=== PATIENT | female | born 1970 | race Caucasian/White ===

== ENCOUNTER → 2020-07-14 | Day surgery (SDC) | payer MEDICARE ==
[2020-07-09 12:48] LABS: BASOPHILS # (AUTO) 0.1 (0.0-0.1); BASOPHILS % 0.4 % (0.0-1.0); EOSINOPHILS # (AUTO) 0.3 (0.0-0.4); EOSINOPHILS % 2.6 % (0.0-6.0); HEMOGLOBIN 12.8 g/dL (12.0-16.0); LYMPHOCYTES # (AUTO) 2.3 (1.0-3.2); LYMPHOCYTES % 20.6 % (18.0-39.1); MEAN CORPUSCULAR HEMOGLOBIN 26.1 pg (28-32); MEAN CORPUSCULAR HGB CONC 29.8 g/dL (31-35); MEAN CORPUSCULAR VOLUME 87.8 fL (81-99); MONOCYTES # (AUTO) 0.8 (0.2-0.8); MONOCYTES % 6.6 % (4.4-11.3); NEUTROPHILS # (AUTO) 7.9 (2.1-6.9); NEUTROPHILS % 69.4 % (38.7-80.0); PLATELET COUNT 326 x10e3/uL (140-360); RED CELL DISTRIBUTION WIDTH 13.7 % (11.7-14.4)
[~2020-07-14] MED LIST: ALBUTEROL0.63 MG/3 NEB; BALANCED SALT SOLN (OPTH) 15 ML BTL IO ONE; CRESTOR10 MG PO; DIGOXIN250 MCG PO; ELIQUIS5 MG PO; FENTANYL CITRATE/PF 100MCG/2 ML INJ ONE; FLONASE ALLERG9.9 ML INH; FUROSEMIDE40 MG PO; GABAPENTIN300 MG PO; HUMALOG MI100 UNIT/2 SQ; LANTUS 3ML100 UNITS/ SC; LEVOXYL125 MCG PO; LIDOCAINE HCL50 ML TOP; METHOCARBAMOL750 MG PO; METOPROLOL TAR100 MG PO; MIDAZOLAM HCL 2 MG/2 ML VIAL ONE; OR PHACO EYE KIT ONE; PREOP PHACO EYE KIT ONE; SERTRALINE HCL100 MG PO; VIT B12 PO; [UNRECOGNIZED DRUG - OTHER] INH
[2020-07-14 11:55] VITALS: BP 118/54
== END | disposition home or self-care (01) ==
LOC: OR 08:13
PROVIDERS: ATTEND Ophthalmology
DX: H25.12 Age-related nuclear cataract, left eye (principal); M54.9 Dorsalgia, unspecified; J45.909 Unspecified asthma, uncomplicated; G47.33 Obstructive sleep apnea (adult) (pediatric); I10 Essential (primary) hypertension; E78.5 Hyperlipidemia, unspecified; I48.91 Unspecified atrial fibrillation; E11.9 Type 2 diabetes mellitus without complications; N20.0 Calculus of kidney; Z88.2 Allergy status to sulfonamides; Z88.8 Allergy status to other drugs, medicaments and biological substances; Z01.812 Encounter for preprocedural laboratory examination; Z20.822 Contact with and (suspected) exposure to COVID-19; Z79.4 Long term (current) use of insulin; Z79.02 Long term (current) use of antithrombotics/antiplatelets
CPT/HCPCS: 36415 ×2; 66982; 82948; 84702; 85025; J2250; J3010; U0002; V2632

== ENCOUNTER 2021-05-03 05:27 | Inpatient (IN) | payer MEDICARE ==
[~2021-05-03] VITALS: Ht 180.3 cm; Wt 147.4 kg
[~2021-05-03 05:27] MED LIST changes: -BALANCED SALT SOLN (OPTH) 15 ML BTL IO ONE; -FENTANYL CITRATE/PF 100MCG/2 ML INJ ONE; -MIDAZOLAM HCL 2 MG/2 ML VIAL ONE; -OR PHACO EYE KIT ONE; -PREOP PHACO EYE KIT ONE
[2021-05-03] MEDS ORDERED: ONDANSETRON HCL INJ 2MG/ML 2ML 2 MG/ML VIAL IV STA (06:26)
[2021-05-03] MEDS ORDERED: NITROGLYCERIN 2% OINT 1 GM PKT TOP ONE (06:30)
[2021-05-03] MEDS ORDERED: NITROGLYCERIN 2% OINT 1 GM PKT ONE (06:40)
[2021-05-03 06:49] LABS: CLARITY,URINE CLEAR (CLEAR); COLOR,URINE YELLOW (YELLOW); KETONES,URINE NEGATIVE (NEGATIVE); LEUKOCYTE ESTERASE ,URINE NEGATIVE (NEGATIVE); NITRITE,URINE NEGATIVE (NEGATIVE); PROTEIN,URINE DIPSTICK TRACE (NEGATIVE); URINE UROBILINOGEN 1 mg/dL (0.2 - 1)
[2021-05-03 06:52] LABS: BACTERIA,URINE FEW /HPF; EPITHELIAL CELLS,URINE MANY /LPF
[2021-05-03 06:59] LABS: BASOPHILS # (AUTO) 0.1 (0.0-0.1); BASOPHILS % 0.6 % (0.0-1.0); EOSINOPHILS # (AUTO) 0.3 (0.0-0.4); EOSINOPHILS % 2.4 % (0.0-6.0); HEMATOCRIT 37.3 % (34.2-44.1); HEMOGLOBIN 10.8 g/dL (12.0-16.0); LYMPHOCYTES # (AUTO) 2.8 (1.0-3.2); LYMPHOCYTES % 20.8 % (18.0-39.1); MEAN CORPUSCULAR HEMOGLOBIN 26.4 pg (28-32); MEAN CORPUSCULAR VOLUME 91.2 fL (81-99); MONOCYTES # (AUTO) 0.8 (0.2-0.8); MONOCYTES % 5.9 % (4.4-11.3); NEUTROPHILS # (AUTO) 9.3 (2.1-6.9); NEUTROPHILS % 69.5 % (38.7-80.0); PLATELET COUNT 359 x10e3/uL (140-360); RED BLOOD COUNT 4.09 x10e6/uL (3.6-5.1); RED CELL DISTRIBUTION WIDTH 13.8 % (11.7-14.4)
[2021-05-03 07:16] LABS: ALANINE AMINOTRANSFERASE 54 IU/L (0-55); ALBUMIN 3.4 g/dL (3.5-5.0); ALBUMIN/GLOBULIN RATIO 0.8 (0.8-2.0); ALKALINE PHOSPHATASE 91 IU/L (40-150); ANION GAP 10.7 mmol/L (8-16); CALCIUM 9.3 mg/dL (8.4-10.2); CARBON DIOXIDE 34 mmol/L (22-29); CHLORIDE 98 mmol/L (98-107); CREATINE KINASE 47 IU/L (29-168); CREATININE, SERUM 0.87 mg/dL (0.57-1.11); EST GLOMERULAR FILTRATION RATE 69 ML/MIN (60-); GLUCOSE 118 mg/dL (74-118); MAGNESIUM 1.9 MG/DL (1.3-2.1); POTASSIUM 3.7 mmol/L (3.5-5.1); SODIUM 139 mmol/L (136-145)
[2021-05-03 07:48] LABS: BLOOD UREA NITROGEN 11 mg/dL (7-26); BUN/CREATININE RATIO 13 (6-25)
[2021-05-03] MEDS: FAMOTIDINE 20 MG/2 ML VIAL IV SCH ×2 (09:00→20:29)
[2021-05-03] MEDS ORDERED: FLUTICASONE PROPIONATE NASAL SPRAY NS PRN (09:45)
[2021-05-03] MEDS ORDERED: METOPROLOL SUCCINATE 50 MG TAB XL PO ONE (09:45)
[2021-05-03] MEDS ORDERED: LIDOCAINE HCL 4% 50 ML BTL TOP SCH (09:45)
[2021-05-03] MEDS ORDERED: DEXTROSE 50% SYRINGE 50 ML IV PRN (09:45)
[2021-05-03 10:00] VITALS: BP 120/60
[2021-05-03] MEDS ORDERED: LIDOCAINE 4% PATCH TP PRN (10:45)
[2021-05-03 11:01] VITALS: BP 120/60
[2021-05-03] MEDS ORDERED: MIRALAX17 GM PO (11:01)
[2021-05-03 11:07] VITALS: BP 120/60
[2021-05-03] MEDS: INSULIN LISPRO 100 UNIT/1 ML 3ML VIAL SQ SCH ×6 (11:30→21:00)
[2021-05-03] MEDS: NITROGLYCERIN 2% OINT 1 GM PKT TOP SCH ×3 (12:54→23:53)
[2021-05-03] MEDS: METOPROLOL TARTRATE 50 MG TAB PO SCH ×2 (12:55→22:00)
[2021-05-03] MEDS: GABAPENTIN 300 MG CAP PO SCH ×2 (15:30→20:29)
[2021-05-03] MEDS: Morphine 2mg Syringe 2 MG/ML SYR IV PRN ×3 (15:39→23:42)
[2021-05-03 16:13] VITALS: BP 118/63
[2021-05-03 16:57] LABS: PROTHROMBIN TIME 12.7 seconds (11.9-14.5)
[2021-05-03] MEDS: APIXABAN 5 MG TABLET PO SCH (16:57)
[2021-05-03] MEDS: INSULIN GLARGINE 100 UNITS/ML VIAL SQ SCH (16:58)
[2021-05-03] MEDS ORDERED: INSULIN GLARGINE U SC SCH (17:00)
[2021-05-03 17:25] LABS: INR 1.15
[2021-05-03 17:28] LABS: PARTIAL THROMBOPLASTIN TIME 32.5 seconds (23.8-35.5)
[2021-05-03 18:21] LABS: CREATINE KINASE MB 1.1 ng/mL (0-5.0)
[2021-05-03 20:00] VITALS: BP 118/63
[2021-05-03] MEDS: SIMVASTATIN 20 MG TAB PO SCH (20:29)
[2021-05-03] MEDS: ONDANSETRON HCL INJ 2MG/ML 2ML 2 MG/ML VIAL IV PRN (20:30)
[2021-05-03] MEDS: SERTRALINE HCL 100 MG TAB PO SCH (20:30)
[2021-05-03 20:54] VITALS: BP 112/54
[2021-05-04] VITALS (7 sets, daily range): BP systolic 102–133; BP diastolic 47–86
[2021-05-04 00:55] LABS: CREATINE KINASE 45 IU/L (29-168)
[2021-05-04 05:05] LABS: BASOPHILS # (AUTO) 0.1 (0.0-0.1); BASOPHILS % 0.6 % (0.0-1.0); EOSINOPHILS # (AUTO) 0.3 (0.0-0.4); EOSINOPHILS % 2.5 % (0.0-6.0); HEMATOCRIT 34.1 % (34.2-44.1); LYMPHOCYTES # (AUTO) 2.7 (1.0-3.2); LYMPHOCYTES % 22.1 % (18.0-39.1); MEAN CORPUSCULAR HGB CONC 29.3 g/dL (31-35); MEAN CORPUSCULAR VOLUME 88.6 fL (81-99); MONOCYTES # (AUTO) 0.9 (0.2-0.8); MONOCYTES % 7.8 % (4.4-11.3); NEUTROPHILS # (AUTO) 8.1 (2.1-6.9); NEUTROPHILS % 66.4 % (38.7-80.0); PLATELET COUNT 328 x10e3/uL (140-360); RED BLOOD COUNT 3.85 x10e6/uL (3.6-5.1); RED CELL DISTRIBUTION WIDTH 13.8 % (11.7-14.4)
[2021-05-04] MEDS: ONDANSETRON HCL INJ 2MG/ML 2ML 2 MG/ML VIAL IV PRN ×3 (05:19→12:20)
[2021-05-04] MEDS: Morphine 2mg Syringe 2 MG/ML SYR IV PRN ×5 (05:19→21:10)
[2021-05-04] MEDS: LEVOTHYROXINE SODIUM 125 MCG TAB PO SCH (05:20)
[2021-05-04] MEDS: METOPROLOL TARTRATE 50 MG TAB PO SCH ×2 (05:22→16:50)
[2021-05-04] MEDS: NITROGLYCERIN 2% OINT 1 GM PKT TOP SCH ×3 (05:25→17:06)
[2021-05-04 05:38] LABS: ALBUMIN 3.1 g/dL (3.5-5.0); ALBUMIN/GLOBULIN RATIO 0.8 (0.8-2.0); CALCIUM 8.8 mg/dL (8.4-10.2); CHOL/HDL RATIO 3.9 (3.0-3.6); CREATININE, SERUM 0.85 mg/dL (0.57-1.11)
[2021-05-04] MEDS: FAMOTIDINE 20 MG/2 ML VIAL IV SCH (08:31)
[2021-05-04] MEDS: GABAPENTIN 300 MG CAP PO SCH ×3 (08:31→21:10)
[2021-05-04] MEDS: APIXABAN 5 MG TABLET PO SCH ×2 (08:31→17:01)
[2021-05-04] MEDS: INSULIN LISPRO 100 UNIT/1 ML 3ML VIAL SQ SCH ×8 (08:35→21:10)
[2021-05-04] MEDS: INSULIN GLARGINE 100 UNITS/ML VIAL SQ SCH ×2 (08:35→17:05)
[2021-05-04] MEDS ORDERED: PEG (High)/E-LYTE SOLN 4,000 ML BTL PO ONE (10:30)
[2021-05-04] MEDS ORDERED: FUROSEMIDE INJ 10 MG/ML 4 ML VIAL IV ONE (10:30)
[2021-05-04] MEDS: ALBUTEROL SULF 0.083% NEB SOLN 3 ML NEB NEB PRN ×2 (12:13→19:10)
[2021-05-04] MEDS ORDERED: POLYETHYLENE GLYCOL 3350 17 GM PACK PO PRN (15:15)
[2021-05-04] MEDS ORDERED: OXAZEPAM 10 MG CAP PO PRN (15:15)
[2021-05-04] MEDS ORDERED: MAGNESIUM HYDROXIDE 30 ML UDC PO PRN (15:15)
[2021-05-04 16:21] LABS: % IRON SATURATION 7 % (15-50); IRON 29 ug/dL (50-170); TOTAL IRON BINDING CAPACITY 435 ug/dL (261-478); TRANSFERRIN 311 mg/dL (180-382)
[2021-05-04] MEDS: DOCUSATE SODIUM 100 MG CAP PO SCH (17:01)
[2021-05-04] MEDS: IRON SUCROSE 100 MG in SODIUM CHLORIDE 0.9% 100 ML 100 ML IV SCH (20:30)
[2021-05-04] MEDS: SERTRALINE HCL 100 MG TAB PO SCH (21:10)
[2021-05-04] MEDS: SIMVASTATIN 20 MG TAB PO SCH (21:10)
[2021-05-04] MEDS: METHOCARBAMOL 750 MG TAB PO SCH (21:10)
[2021-05-05] VITALS (9 sets, daily range): BP systolic 110–137; BP diastolic 56–61
[2021-05-05] MEDS: ONDANSETRON HCL INJ 2MG/ML 2ML 2 MG/ML VIAL IV PRN ×6 (00:37→21:40)
[2021-05-05] MEDS: Morphine 2mg Syringe 2 MG/ML SYR IV PRN ×6 (00:37→21:40)
[2021-05-05] MEDS: NITROGLYCERIN 2% OINT 1 GM PKT TOP SCH ×4 (00:37→18:27)
[2021-05-05 05:31] LABS: BASOPHILS # (AUTO) 0.1 (0.0-0.1); BASOPHILS % 0.5 % (0.0-1.0); EOSINOPHILS # (AUTO) 0.4 (0.0-0.4); EOSINOPHILS % 2.9 % (0.0-6.0); HEMATOCRIT 35.3 % (34.2-44.1); HEMOGLOBIN 10.3 g/dL (12.0-16.0); LYMPHOCYTES # (AUTO) 2.2 (1.0-3.2); LYMPHOCYTES % 17.4 % (18.0-39.1); MEAN CORPUSCULAR HEMOGLOBIN 25.8 pg (28-32); MEAN CORPUSCULAR HGB CONC 29.2 g/dL (31-35); MEAN CORPUSCULAR VOLUME 88.5 fL (81-99); MONOCYTES % 7.6 % (4.4-11.3); NEUTROPHILS # (AUTO) 9.1 (2.1-6.9); NEUTROPHILS % 70.9 % (38.7-80.0); PLATELET COUNT 338 x10e3/uL (140-360); RED BLOOD COUNT 3.99 x10e6/uL (3.6-5.1); RED CELL DISTRIBUTION WIDTH 13.8 % (11.7-14.4)
[2021-05-05 05:45] LABS: ANION GAP 13.7 mmol/L (8-16); CALCIUM 9.4 mg/dL (8.4-10.2); CREATININE, SERUM 0.83 mg/dL (0.57-1.11); POTASSIUM 3.7 mmol/L (3.5-5.1)
[2021-05-05] MEDS: LEVOTHYROXINE SODIUM 125 MCG TAB PO SCH (06:53)
[2021-05-05] MEDS: INSULIN LISPRO 100 UNIT/1 ML 3ML VIAL SQ SCH ×8 (07:30→21:40)
[2021-05-05] MEDS: DOCUSATE SODIUM 100 MG CAP PO SCH ×2 (09:10→16:53)
[2021-05-05] MEDS: PANTOPRAZOLE SOD 40 MG TABEC PO SCH (09:10)
[2021-05-05] MEDS: FUROSEMIDE 40 MG TAB PO SCH (09:10)
[2021-05-05] MEDS: APIXABAN 5 MG TABLET PO SCH ×2 (09:10→16:53)
[2021-05-05] MEDS: INSULIN GLARGINE 100 UNITS/ML VIAL SQ SCH ×2 (09:11→17:00)
[2021-05-05] MEDS: GABAPENTIN 300 MG CAP PO SCH ×3 (09:11→21:40)
[2021-05-05] MEDS: METOPROLOL TARTRATE 50 MG TAB PO SCH ×2 (09:11→16:54)
[2021-05-05] MEDS: METHOCARBAMOL 750 MG TAB PO SCH ×3 (09:11→21:40)
[2021-05-05] MEDS ORDERED: SODIUM CHLORIDE 0.9% 250ML 250 ML ONE (11:41)
[2021-05-05] MEDS: DIGOXIN 0.125 MG TAB PO SCH (11:53)
[2021-05-05] MEDS: CEFTRIAXONE 1 GM in SODIUM CHLORIDE 0.9% 50ML 50 ML IV SCH ×2 (11:53→21:40)
[2021-05-05] MEDS: PROMETHAZINE HCL 25 MG TAB PO PRN (17:11)
[2021-05-05] MEDS: IRON SUCROSE 100 MG in SODIUM CHLORIDE 0.9% 100 ML 100 ML IV SCH ×2 (20:00→21:56)
[2021-05-05] MEDS: ALBUTEROL SULF 0.083% NEB SOLN 3 ML NEB NEB PRN (20:30)
[2021-05-05] MEDS: SIMVASTATIN 20 MG TAB PO SCH (21:40)
[2021-05-05] MEDS: SERTRALINE HCL 100 MG TAB PO SCH (21:40)
[2021-05-06] VITALS (7 sets, daily range): BP systolic 105–125; BP diastolic 53–69
[2021-05-06] MEDS: NITROGLYCERIN 2% OINT 1 GM PKT TOP SCH ×4 (00:06→18:02)
[2021-05-06] MEDS: Morphine 2mg Syringe 2 MG/ML SYR IV PRN ×7 (00:15→22:27)
[2021-05-06 05:58] LABS: BASOPHILS # (AUTO) 0.1 (0.0-0.1); BASOPHILS % 0.6 % (0.0-1.0); EOSINOPHILS # (AUTO) 0.6 (0.0-0.4); EOSINOPHILS % 4.2 % (0.0-6.0); HEMATOCRIT 34.7 % (34.2-44.1); HEMOGLOBIN 10.7 g/dL (12.0-16.0); LYMPHOCYTES # (AUTO) 2.9 (1.0-3.2); LYMPHOCYTES % 21.2 % (18.0-39.1); MEAN CORPUSCULAR HEMOGLOBIN 26.8 pg (28-32); MEAN CORPUSCULAR HGB CONC 30.8 g/dL (31-35); MEAN CORPUSCULAR VOLUME 86.8 fL (81-99); MONOCYTES # (AUTO) 1.1 (0.2-0.8); MONOCYTES % 7.9 % (4.4-11.3); NEUTROPHILS # (AUTO) 8.9 (2.1-6.9); NEUTROPHILS % 65.1 % (38.7-80.0); PLATELET COUNT 328 x10e3/uL (140-360)
[2021-05-06 06:18] LABS: ANION GAP 12.6 mmol/L (8-16); CALCIUM 8.9 mg/dL (8.4-10.2); CREATININE, SERUM 0.83 mg/dL (0.57-1.11); POTASSIUM 3.6 mmol/L (3.5-5.1)
[2021-05-06] MEDS: LEVOTHYROXINE SODIUM 125 MCG TAB PO SCH (06:43)
[2021-05-06] MEDS: ONDANSETRON HCL INJ 2MG/ML 2ML 2 MG/ML VIAL IV PRN ×2 (06:44→12:57)
[2021-05-06] MEDS: INSULIN LISPRO 100 UNIT/1 ML 3ML VIAL SQ SCH ×8 (07:30→22:17)
[2021-05-06] MEDS: GABAPENTIN 300 MG CAP PO SCH ×3 (08:35→22:26)
[2021-05-06] MEDS: DOCUSATE SODIUM 100 MG CAP PO SCH ×2 (08:35→16:11)
[2021-05-06] MEDS: PANTOPRAZOLE SOD 40 MG TABEC PO SCH (08:36)
[2021-05-06] MEDS: DIGOXIN 0.125 MG TAB PO SCH (08:36)
[2021-05-06] MEDS: APIXABAN 5 MG TABLET PO SCH ×2 (08:36→16:22)
[2021-05-06] MEDS: FUROSEMIDE 40 MG TAB PO SCH (08:36)
[2021-05-06] MEDS: METOPROLOL TARTRATE 50 MG TAB PO SCH ×2 (08:36→16:12)
[2021-05-06] MEDS: CEFTRIAXONE 1 GM in SODIUM CHLORIDE 0.9% 50ML 50 ML IV SCH ×2 (08:46→22:26)
[2021-05-06] MEDS: INSULIN GLARGINE 100 UNITS/ML VIAL SQ SCH ×2 (09:25→17:14)
[2021-05-06] MEDS: METHOCARBAMOL 500 MG TAB PO SCH ×3 (09:25→22:26)
[2021-05-06] MEDS: PROMETHAZINE HCL 25 MG TAB PO PRN ×2 (16:30→22:28)
[2021-05-06] MEDS: IRON SUCROSE 100 MG in SODIUM CHLORIDE 0.9% 100 ML 100 ML IV SCH (20:50)
[2021-05-06] MEDS: SERTRALINE HCL 100 MG TAB PO SCH (22:26)
[2021-05-06] MEDS: SIMVASTATIN 20 MG TAB PO SCH (22:26)
[2021-05-06] MEDS: ALBUTEROL SULF 0.083% NEB SOLN 3 ML NEB NEB PRN (23:14)
[2021-05-07] VITALS (8 sets, daily range): BP systolic 103–132; BP diastolic 57–76
[2021-05-07] MEDS: NITROGLYCERIN 2% OINT 1 GM PKT TOP SCH ×4 (00:44→18:00)
[2021-05-07] MEDS: ONDANSETRON HCL INJ 2MG/ML 2ML 2 MG/ML VIAL IV PRN ×5 (01:30→22:45)
[2021-05-07] MEDS: Morphine 2mg Syringe 2 MG/ML SYR IV PRN ×7 (01:30→22:45)
[2021-05-07] MEDS: ALBUTEROL SULF 0.083% NEB SOLN 3 ML NEB NEB PRN (02:54)
[2021-05-07] MEDS: LEVOTHYROXINE SODIUM 125 MCG TAB PO SCH (06:52)
[2021-05-07] MEDS: INSULIN LISPRO 100 UNIT/1 ML 3ML VIAL SQ SCH ×8 (07:30→19:55)
[2021-05-07] MEDS: INSULIN GLARGINE 100 UNITS/ML VIAL SQ SCH ×2 (09:00→17:00)
[2021-05-07] MEDS: APIXABAN 5 MG TABLET PO SCH ×2 (09:33→18:06)
[2021-05-07] MEDS: CEFTRIAXONE 1 GM in SODIUM CHLORIDE 0.9% 50ML 50 ML IV SCH ×2 (09:33→20:01)
[2021-05-07] MEDS: DIGOXIN 0.125 MG TAB PO SCH (09:33)
[2021-05-07] MEDS: FUROSEMIDE 40 MG TAB PO SCH (09:33)
[2021-05-07] MEDS: DOCUSATE SODIUM 100 MG CAP PO SCH ×2 (09:33→18:06)
[2021-05-07] MEDS: PANTOPRAZOLE SOD 40 MG TABEC PO SCH (09:33)
[2021-05-07] MEDS: GABAPENTIN 300 MG CAP PO SCH ×3 (09:34→20:01)
[2021-05-07] MEDS: METHOCARBAMOL 500 MG TAB PO SCH ×3 (09:34→20:01)
[2021-05-07] MEDS: METOPROLOL TARTRATE 50 MG TAB PO SCH ×2 (09:34→17:00)
[2021-05-07] MEDS: PROMETHAZINE HCL 25 MG TAB PO PRN (09:45)
[2021-05-07] MEDS ORDERED: SODIUM CHLORIDE 0.9% 250ML 250 ML ONE (12:10)
[2021-05-07] MEDS: SERTRALINE HCL 100 MG TAB PO SCH (20:01)
[2021-05-08] VITALS (9 sets, daily range): BP systolic 106–138; BP diastolic 55–99
[2021-05-08] MEDS: NITROGLYCERIN 2% OINT 1 GM PKT TOP SCH ×2 (00:24→06:30)
[2021-05-08] MEDS: Morphine 2mg Syringe 2 MG/ML SYR IV PRN ×7 (01:55→22:52)
[2021-05-08] MEDS: ONDANSETRON HCL INJ 2MG/ML 2ML 2 MG/ML VIAL IV PRN ×4 (01:55→19:50)
[2021-05-08] MEDS: LEVOTHYROXINE SODIUM 125 MCG TAB PO SCH (06:30)
[2021-05-08] MEDS: INSULIN LISPRO 100 UNIT/1 ML 3ML VIAL SQ SCH ×7 (08:06→20:32)
[2021-05-08] MEDS: PANTOPRAZOLE SOD 40 MG TABEC PO SCH (08:58)
[2021-05-08] MEDS: CEFTRIAXONE 1 GM in SODIUM CHLORIDE 0.9% 50ML 50 ML IV SCH ×2 (08:58→23:01)
[2021-05-08] MEDS: DIGOXIN 0.125 MG TAB PO SCH (08:59)
[2021-05-08] MEDS: FUROSEMIDE 40 MG TAB PO SCH ×2 (08:59→12:31)
[2021-05-08] MEDS: DOCUSATE SODIUM 100 MG CAP PO SCH ×2 (08:59→16:42)
[2021-05-08] MEDS: APIXABAN 5 MG TABLET PO SCH ×2 (08:59→16:42)
[2021-05-08] MEDS: METHOCARBAMOL 500 MG TAB PO SCH ×3 (09:00→20:25)
[2021-05-08] MEDS: GABAPENTIN 300 MG CAP PO SCH ×3 (09:00→20:25)
[2021-05-08] MEDS: METOPROLOL TARTRATE 50 MG TAB PO SCH ×2 (09:00→16:42)
[2021-05-08] MEDS: INSULIN GLARGINE 100 UNITS/ML VIAL SQ SCH ×2 (09:07→16:43)
[2021-05-08] MEDS: ISOSORBIDE MONONITRATE 30 MG TAB CR PO SCH (12:30)
[2021-05-08] MEDS: PROMETHAZINE HCL 25 MG TAB PO PRN (16:45)
[2021-05-08] MEDS: SERTRALINE HCL 100 MG TAB PO SCH (20:25)
[2021-05-09] VITALS (10 sets, daily range): BP systolic 99–116; BP diastolic 58–80
[2021-05-09] MEDS: Morphine 2mg Syringe 2 MG/ML SYR IV PRN ×6 (01:47→23:18)
[2021-05-09] MEDS: LEVOTHYROXINE SODIUM 125 MCG TAB PO SCH (05:21)
[2021-05-09 06:05] LABS: BASOPHILS # (AUTO) 0.1 (0.0-0.1); BASOPHILS % 0.5 % (0.0-1.0); EOSINOPHILS # (AUTO) 0.6 (0.0-0.4); EOSINOPHILS % 4.4 % (0.0-6.0); HEMATOCRIT 38.6 % (34.2-44.1); HEMOGLOBIN 11.3 g/dL (12.0-16.0); LYMPHOCYTES # (AUTO) 2.7 (1.0-3.2); LYMPHOCYTES % 21.3 % (18.0-39.1); MEAN CORPUSCULAR HGB CONC 29.3 g/dL (31-35); MEAN CORPUSCULAR VOLUME 88.9 fL (81-99); MONOCYTES # (AUTO) 0.7 (0.2-0.8); MONOCYTES % 5.6 % (4.4-11.3); NEUTROPHILS # (AUTO) 8.6 (2.1-6.9); NEUTROPHILS % 67.6 % (38.7-80.0); PLATELET COUNT 370 x10e3/uL (140-360); RED BLOOD COUNT 4.34 x10e6/uL (3.6-5.1); RED CELL DISTRIBUTION WIDTH 13.9 % (11.7-14.4)
[2021-05-09 06:49] LABS: ANION GAP 12.8 mmol/L (8-16); CALCIUM 9.6 mg/dL (8.4-10.2); CREATININE, SERUM 0.85 mg/dL (0.57-1.11); POTASSIUM 3.8 mmol/L (3.5-5.1)
[2021-05-09] MEDS: PANTOPRAZOLE SOD 40 MG TABEC PO SCH (08:29)
[2021-05-09] MEDS: APIXABAN 5 MG TABLET PO SCH ×2 (08:29→17:09)
[2021-05-09] MEDS: FUROSEMIDE 40 MG TAB PO SCH ×2 (08:29→12:16)
[2021-05-09] MEDS: CEFTRIAXONE 1 GM in SODIUM CHLORIDE 0.9% 50ML 50 ML IV SCH ×2 (08:29→20:19)
[2021-05-09] MEDS: ISOSORBIDE MONONITRATE 30 MG TAB CR PO SCH (08:29)
[2021-05-09] MEDS: DOCUSATE SODIUM 100 MG CAP PO SCH ×2 (08:29→17:09)
[2021-05-09] MEDS: INSULIN GLARGINE 100 UNITS/ML VIAL SQ SCH ×2 (08:30→17:10)
[2021-05-09] MEDS: METHOCARBAMOL 500 MG TAB PO SCH ×3 (08:30→20:19)
[2021-05-09] MEDS: DIGOXIN 0.125 MG TAB PO SCH (08:30)
[2021-05-09] MEDS: GABAPENTIN 300 MG CAP PO SCH ×3 (08:30→20:19)
[2021-05-09] MEDS: METOPROLOL TARTRATE 50 MG TAB PO SCH ×2 (08:30→17:08)
[2021-05-09] MEDS: INSULIN LISPRO 100 UNIT/1 ML 3ML VIAL SQ SCH ×7 (08:31→20:19)
[2021-05-09] MEDS: ALBUTEROL SULF 0.083% NEB SOLN 3 ML NEB NEB PRN (19:21)
[2021-05-09] MEDS: SERTRALINE HCL 100 MG TAB PO SCH (20:19)
[2021-05-10 00:33] VITALS: BP 119/59
[2021-05-10 05:14] VITALS: BP 111/53
[2021-05-10] MEDS: LEVOTHYROXINE SODIUM 125 MCG TAB PO SCH (05:49)
[2021-05-10] MEDS: PROMETHAZINE HCL 25 MG TAB PO PRN ×2 (05:49→12:28)
[2021-05-10] MEDS: Morphine 2mg Syringe 2 MG/ML SYR IV PRN ×3 (05:50→12:28)
[2021-05-10] MEDS: INSULIN LISPRO 100 UNIT/1 ML 3ML VIAL SQ SCH ×4 (07:30→11:30)
[2021-05-10 08:19] VITALS: BP 122/64
[2021-05-10 08:21] VITALS: BP 122/64
[2021-05-10] MEDS: METHOCARBAMOL 500 MG TAB PO SCH (08:38)
[2021-05-10] MEDS: METOPROLOL TARTRATE 50 MG TAB PO SCH (08:38)
[2021-05-10] MEDS: FUROSEMIDE 40 MG TAB PO SCH ×2 (08:38→11:36)
[2021-05-10] MEDS: DIGOXIN 0.125 MG TAB PO SCH (08:38)
[2021-05-10] MEDS: INSULIN GLARGINE 100 UNITS/ML VIAL SQ SCH (08:38)
[2021-05-10] MEDS: APIXABAN 5 MG TABLET PO SCH (08:38)
[2021-05-10] MEDS: GABAPENTIN 300 MG CAP PO SCH (08:38)
[2021-05-10] MEDS: PANTOPRAZOLE SOD 40 MG TABEC PO SCH (08:38)
[2021-05-10] MEDS: DOCUSATE SODIUM 100 MG CAP PO SCH (08:38)
[2021-05-10] MEDS: ISOSORBIDE MONONITRATE 30 MG TAB CR PO SCH (08:38)
[2021-05-10] MEDS: CEFTRIAXONE 1 GM in SODIUM CHLORIDE 0.9% 50ML 50 ML IV SCH (08:39)
[2021-05-10] MEDS: ONDANSETRON HCL INJ 2MG/ML 2ML 2 MG/ML VIAL IV PRN (09:00)
[2021-05-10 11:36] VITALS: BP 133/62
[2021-05-10 15:45] VITALS: BP 115/54
== END 2021-05-10 16:30 | disposition home health service (06) | DRG 291 ==
LOC: ER 05:32 → ERHOLD 07:20 → MED/SURG3 09:54
PROVIDERS: ADMIT Internal Medicine; ATTEND Internal Medicine
DX: I11.0 Hypertensive heart disease with heart failure (principal); I50.33 Acute on chronic diastolic (congestive) heart failure; J96.22 Acute and chronic respiratory failure with hypercapnia; J96.21 Acute and chronic respiratory failure with hypoxia; J44.1 Chronic obstructive pulmonary disease with (acute) exacerbation; D68.0 Von Willebrand disease; I48.20 Chronic atrial fibrillation, unspecified; Z68.42 Body mass index [BMI] 45.0-49.9, adult; E66.2 Morbid (severe) obesity with alveolar hypoventilation; J44.0 Chronic obstructive pulmonary disease with (acute) lower respiratory infection; Z88.1 Allergy status to other antibiotic agents; Z91.040 Latex allergy status; Z88.2 Allergy status to sulfonamides; Z88.8 Allergy status to other drugs, medicaments and biological substances; Z91.048 Other nonmedicinal substance allergy status; E11.9 Type 2 diabetes mellitus without complications; E55.9 Vitamin D deficiency, unspecified; E53.8 Deficiency of other specified B group vitamins; Z79.4 Long term (current) use of insulin; I20.9 Angina pectoris, unspecified; E03.9 Hypothyroidism, unspecified; Z79.01 Long term (current) use of anticoagulants; Z99.81 Dependence on supplemental oxygen; F17.200 Nicotine dependence, unspecified, uncomplicated; K59.00 Constipation, unspecified; J20.9 Acute bronchitis, unspecified; M19.90 Unspecified osteoarthritis, unspecified site; Z20.822 Contact with and (suspected) exposure to COVID-19
CPT/HCPCS: 36415; 71045; 71250; 74018; 80048; 80053; 80061; 80162; 81001; 82550; 82553; 82607; 82948; 83036; 83540; 83735; 83880; 84443; 84466; 84484; 84702; 85025; 85610; 85730; 87086; 93005; 93306; 94799; 96365; 96372; 99284; J0456; J0696; J1756; J1815; J1940; J2270; J2405; J7050; U0002

== ENCOUNTER 2021-09-02 14:11 | Observation (INO) | payer MEDICARE ==
[~2021-09-02] VITALS: Ht 180.3 cm; Wt 147.4 kg
[~2021-09-02 14:11] MED LIST changes: +MIRALAX17 GM PO
[2021-09-02 14:41] LABS: BASOPHILS # (AUTO) 0.1 (0.0-0.1); BASOPHILS % 0.5 % (0.0-1.0); EOSINOPHILS # (AUTO) 0.4 (0.0-0.4); EOSINOPHILS % 3.3 % (0.0-6.0); HEMATOCRIT 37.9 % (34.2-44.1); HEMOGLOBIN 11.5 g/dL (12.0-16.0); LYMPHOCYTES % 17.2 % (18.0-39.1); MEAN CORPUSCULAR HEMOGLOBIN 27.1 pg (28-32); MEAN CORPUSCULAR HGB CONC 30.3 g/dL (31-35); MEAN CORPUSCULAR VOLUME 89.4 fL (81-99); MONOCYTES # (AUTO) 0.7 (0.2-0.8); MONOCYTES % 5.9 % (4.4-11.3); NEUTROPHILS # (AUTO) 8.4 (2.1-6.9); NEUTROPHILS % 72.6 % (38.7-80.0); PLATELET COUNT 297 x10e3/uL (140-360); RED BLOOD COUNT 4.24 x10e6/uL (3.6-5.1); RED CELL DISTRIBUTION WIDTH 15.5 % (11.7-14.4)
[2021-09-02 14:51] LABS: INR 1.33; PROTHROMBIN TIME 17.6 seconds (11.9-14.5)
[2021-09-02 14:52] LABS: PARTIAL THROMBOPLASTIN TIME 44.8 seconds (23.8-35.5)
[2021-09-02 14:59] LABS: ALANINE AMINOTRANSFERASE 108 IU/L (0-55); ALBUMIN/GLOBULIN RATIO 0.6 (0.8-2.0); ALKALINE PHOSPHATASE 162 IU/L (40-150); ANION GAP 12.9 mmol/L (8-16); BLOOD UREA NITROGEN 9 mg/dL (7-26); BUN/CREATININE RATIO 11 (6-25); CALCIUM 9.2 mg/dL (8.4-10.2); CARBON DIOXIDE 34 mmol/L (22-29); CHLORIDE 96 mmol/L (98-107); CREATINE KINASE 32 IU/L (29-168); CREATININE, SERUM 0.79 mg/dL (0.57-1.11); EST GLOMERULAR FILTRATION RATE 76 ML/MIN (60-); GLUCOSE 176 mg/dL (74-118); POTASSIUM 3.9 mmol/L (3.5-5.1); SODIUM 139 mmol/L (136-145)
[2021-09-02] MEDS ORDERED: SODIUM CHLORIDE 0.9% 1000ML 1,000 ML IV ONE (15:00)
[2021-09-02] MEDS ORDERED: ONDANSETRON HCL INJ 2MG/ML 2ML 2 MG/ML VIAL IV PRN ×2 (15:00→16:00)
[2021-09-02] MEDS ORDERED: SODIUM CHLORIDE FLUSH 10 ML SYR INJ PRN ×2 (16:00→17:30)
[2021-09-02] MEDS: ASPIRIN 81 MG CHEW TAB PO ONE ×2 (16:00→18:35)
[2021-09-02] MEDS ORDERED: IOPAMIDOL 370 MG/ML 100 ML INFUS..BTL INJ ONE (16:32)
[2021-09-02] MEDS ORDERED: DEXTROSE 50% SYRINGE 50 ML IV PRN ×2 (17:30→21:30)
[2021-09-02] MEDS ORDERED: HYDROCODONE/APAP 5MG-325MG TAB PO PRN (17:30)
[2021-09-02 20:00] VITALS: BP 113/65
[2021-09-02] MEDS ORDERED: WIXELA 250-501 EACH (20:27)
[2021-09-02] MEDS ORDERED: TIZANIDINE HCL2 MG PO (20:27)
[2021-09-02] MEDS ORDERED: ISOSORBIDE MONO30 MG PO (20:27)
[2021-09-02] MEDS ORDERED: ZOLOFT100 MG PO (20:27)
[2021-09-02] MEDS ORDERED: LIPITOR20 MG PO (20:27)
[2021-09-02] MEDS ORDERED: ONDANSETRON ODT4 MG PO (20:27)
[2021-09-02] MEDS ORDERED: HUMALOG100 UNIT/1 SQ (20:52)
[2021-09-02] MEDS ORDERED: LANTUS 3ML100 UNITS/ SQ (20:52)
[2021-09-02 21:00] VITALS: BP 113/65
[2021-09-02] MEDS ORDERED: ATORVASTATIN 40 MG TAB PO SCH (21:00)
[2021-09-02] MEDS ORDERED: ONDANSETRON HCL 4 MG ORAL DISINTEGRATING TAB PO SCH (21:00)
[2021-09-02] MEDS ORDERED: POLYETHYLENE GLYCOL 3350 17 GM PACK PO PRN (21:00)
[2021-09-02] MEDS ORDERED: INSULIN REGULAR, HUMAN 100 UNIT/1 ML SQ SCH (21:00)
[2021-09-02] MEDS ORDERED: SERTRALINE HCL 100 MG TAB PO SCH (21:00)
[2021-09-02] MEDS: INSULIN GLARGINE 100 UNITS/ML VIAL SQ SCH (21:50)
[2021-09-02] MEDS: GABAPENTIN 300 MG CAP PO SCH (21:50)
[2021-09-02] MEDS ORDERED: ALBUTEROL/IPRATROPIUM 3 ML NEB NEB SCH (23:00)
[2021-09-02] MEDS ORDERED: ALBUTEROL/IPRATROPIUM 3 ML NEB NEB PRN (23:00)
[2021-09-02] MEDS: Morphine 2mg Syringe 2 MG/ML SYR IV PRN (23:30)
[2021-09-03] VITALS: BP 125/52
[2021-09-03] MEDS ORDERED: ACETAMINOPHEN 325 MG TAB PO PRN (00:30)
[2021-09-03 01:50] LABS: CREATINE KINASE 32 IU/L (29-168)
[2021-09-03] MEDS: ONDANSETRON HCL INJ 2MG/ML 2ML 2 MG/ML VIAL IV PRN ×2 (02:40→14:14)
[2021-09-03] MEDS: Morphine 2mg Syringe 2 MG/ML SYR IV PRN ×3 (02:40→14:16)
[2021-09-03 04:00] VITALS: BP 112/41
[2021-09-03 06:36] LABS: BASOPHILS % 0.4 % (0.0-1.0); EOSINOPHILS # (AUTO) 0.3 (0.0-0.4); EOSINOPHILS % 3.3 % (0.0-6.0); HEMATOCRIT 37.8 % (34.2-44.1); HEMOGLOBIN 11.3 g/dL (12.0-16.0); LYMPHOCYTES # (AUTO) 2.3 (1.0-3.2); LYMPHOCYTES % 22.7 % (18.0-39.1); MEAN CORPUSCULAR HEMOGLOBIN 26.8 pg (28-32); MEAN CORPUSCULAR HGB CONC 29.9 g/dL (31-35); MEAN CORPUSCULAR VOLUME 89.8 fL (81-99); MONOCYTES # (AUTO) 0.8 (0.2-0.8); MONOCYTES % 7.7 % (4.4-11.3); NEUTROPHILS # (AUTO) 6.6 (2.1-6.9); NEUTROPHILS % 65.3 % (38.7-80.0); PLATELET COUNT 265 x10e3/uL (140-360); RED BLOOD COUNT 4.21 x10e6/uL (3.6-5.1); RED CELL DISTRIBUTION WIDTH 15.5 % (11.7-14.4)
[2021-09-03 06:59] LABS: ALBUMIN 2.7 g/dL (3.5-5.0); ALBUMIN/GLOBULIN RATIO 0.6 (0.8-2.0); ANION GAP 12.6 mmol/L (8-16); CALCIUM 8.5 mg/dL (8.4-10.2); CHOL/HDL RATIO 4.7 (3.0-3.6); CREATININE, SERUM 0.75 mg/dL (0.57-1.11); POTASSIUM 3.6 mmol/L (3.5-5.1)
[2021-09-03 07:19] LABS: THYROID STIMULATING HORMONE 5.122 uIU/mL (0.350-4.940)
[2021-09-03] MEDS ORDERED: LEVOTHYROXINE SODIUM 125 MCG TAB PO SCH (07:30)
[2021-09-03] MEDS: INSULIN LISPRO 100 UNIT/1 ML 3ML VIAL SQ SCH ×4 (07:30→12:39)
[2021-09-03 07:55] LABS: FREE T4 (FREE THYROXINE) 1.02 ng/dL (0.8-1.8); FREE THYROXINE INDEX 2.2761 (1.4-3.8)
[2021-09-03 08:00] VITALS: BP 112/41
[2021-09-03 08:01] VITALS: BP 113/91
[2021-09-03] MEDS: GABAPENTIN 300 MG CAP PO SCH (09:00)
[2021-09-03] MEDS ORDERED: DOCUSATE SODIUM 100 MG CAP PO SCH (09:00)
[2021-09-03] MEDS ORDERED: APIXABAN 5 MG TABLET PO SCH (09:00)
[2021-09-03] MEDS ORDERED: DIGOXIN 0.25 MG TAB PO SCH ×2 (09:00→10:00)
[2021-09-03] MEDS ORDERED: ISOSORBIDE MONONITRATE 30 MG TAB CR PO SCH (09:00)
[2021-09-03] MEDS ORDERED: SENNOSIDES 8.6 MG TAB PO SCH (09:00)
[2021-09-03 09:32] LABS: CREATINE KINASE 35 IU/L (29-168)
[2021-09-03] MEDS ORDERED: LANOXIN250 MCG PO (10:16)
[2021-09-03] MEDS ORDERED: ONDANSETRON ODT8 MG PO (10:16)
[2021-09-03] MEDS ORDERED: METOPROLOL SUCC50 MG PO (10:16)
[2021-09-03] MEDS ORDERED: HYDROCODON-ACE1 EA11 PO (10:16)
[2021-09-03 11:41] VITALS: BP 138/71
[2021-09-03] MEDS: INSULIN GLARGINE 100 UNITS/ML VIAL SQ SCH (13:10)
[2021-09-03 15:33] LABS: CREATINE KINASE 34 IU/L (29-168)
[2021-09-03] MEDS ORDERED: ENOXAPARIN SOD INJ 40 MG/0.4 ML SYR SC SCH (17:00)
[2021-09-08] MEDS ORDERED: HYDROCODON-ACE1 EA11 PO (13:46)
== END 2021-09-03 15:40 | disposition home or self-care (01) ==
LOC: ER 14:22 → INTOOBSV 15:54 → ERHOLD 15:54 → MED/SURG2 18:50
PROVIDERS: ADMIT Internal Medicine; ATTEND Internal Medicine
DX: I48.91 Unspecified atrial fibrillation (principal); I11.0 Hypertensive heart disease with heart failure; I50.30 Unspecified diastolic (congestive) heart failure; I25.10 Atherosclerotic heart disease of native coronary artery without angina pectoris; E78.5 Hyperlipidemia, unspecified; E06.3 Autoimmune thyroiditis; E66.2 Morbid (severe) obesity with alveolar hypoventilation; E11.9 Type 2 diabetes mellitus without complications; G47.33 Obstructive sleep apnea (adult) (pediatric); R55 Syncope and collapse; Z68.42 Body mass index [BMI] 45.0-49.9, adult; Z88.2 Allergy status to sulfonamides; Z88.8 Allergy status to other drugs, medicaments and biological substances; Z88.9 Allergy status to unspecified drugs, medicaments and biological substances; Z91.040 Latex allergy status; E03.9 Hypothyroidism, unspecified; Z20.822 Contact with and (suspected) exposure to COVID-19
CPT/HCPCS: 36415; 71045; 71260; 80053 ×2; 80061; 80162; 82550 ×2; 82553 ×2; 82948 ×2; 83036; 83880; 84436; 84439; 84443; 84479; 84484 ×2; 85025 ×2; 85610; 85730; 93005 ×2; 93306; 94660; 94799 ×2; 99285; G0378 ×2; J1815; J2270 ×2; J2405 ×2; J7030; Q0162; Q9967; U0002